=== PATIENT | female | born 1945 | race Caucasian/White ===

== ENCOUNTER 2022-03-07 09:43 | Outpatient (CLI) | payer MEDICARE, BC, SELFPAY ==
[2022-03-07 14:42] LABS: Chloride* 100 mmol/L (96-114); Potassium* 4.9 mmol/L (3.6-5.1); Sodium* 136 mmol/L (135-149)
[2022-03-07 14:45] LABS: Blood Urea Nitrogen* 15 mg/dL (7-30); Carbon Dioxide* 26 mmol/L (20-32); Cholesterol* 249 mg/dL (90-199); Creatinine* 0.8 mg/dL (0.5-1.5); Estimated Glomerular Filt Rate 77 ml/min; Glucose* 96 mg/dL (60-115); Triglycerides* 158 mg/dL (40-149)
[2022-03-07 14:46] LABS: Calcium* 9.7 mg/dL (8.4-10.6); HDL Cholesterol* 49 mg/dL (>=50); LDL Cholesterol Calculated 168 mg/dL (<100)
== END 2022-03-07 09:44 | disposition home or self-care (01) ==
PROVIDERS: PCP Family Medicine; Visit Provider Family Medicine
DX: I10 Essential (primary) hypertension (principal); E78.5 Hyperlipidemia, unspecified
CPT/HCPCS: 80048; 80061

== ENCOUNTER 2022-09-12 08:53 | Outpatient (CLI) | payer MEDICARE, BC, SELFPAY ==
--- NOTE | 2022-09-12 09:15 | CRLHL7_ITS ---
For Patients: As a result of the Century Cures Act, medical imaging exams and procedure reports are released immediately into your electronic medical record. You may view this report before your referring provider. If you have questions, please contact your health care provider. BILATERAL SCREENING MAMMOGRAM WITH COMPUTER-AIDED DETECTION AND TOMOSYNTHESIS TECHNIQUE: CC and MLO views were obtained. These mammographic images have been obtained using full-field digital technique. These mammographic images were interpreted with the benefit of computer-aided detection. Breast Tomosynthesis was used in this interpretation. COMPARISON FILM: 03/10/21, 04/02/19. FINDINGS: There are scattered areas of fibroglandular density IMPRESSION: There is no radiographic evidence for malignancy. ASSESSMENT: BI-RADS Category 1: Negative RECOMMENDATION: Routine screening mammogram in 1 year. A lay language report of this examination will be provided to the patient. Akash Chaves M.D. Diagnostic Radiologist [email or web address] TIAN/rufina / be/Dictated by: Akash Chaves MD @ 09/12/2022 12:03:00 PM (Electronically Signed)
== END 2022-09-12 08:54 | disposition home or self-care (01) ==
LOC: MAMMO 08:54
PROVIDERS: PCP Family Medicine; Visit Provider Family Medicine
DX: Z12.31 Encounter for screening mammogram for malignant neoplasm of breast (principal)
CPT/HCPCS: 77063; 77067

== ENCOUNTER 2023-04-17 10:04 | Outpatient (CLI) | payer MEDICARE, BC, SELFPAY | END 2023-04-17 10:05 | disposition home or self-care (01) | PROVIDERS: PCP Family Medicine; Visit Provider Family Medicine | DX: I10 Essential (primary) hypertension (principal); E78.5 Hyperlipidemia, unspecified | CPT/HCPCS: 80048; 80061 ==

== ENCOUNTER 2023-08-23 09:25 | Outpatient (CLI) | payer MEDICARE, BC, SELFPAY ==
--- NOTE | 2023-08-23 10:00 | CT_ITS ---
Patient: JESÚS OSEI STONE Facility:?[facility] RIS Patient ID:?[id number] Site Patient ID:?[id number]. Site :?1945 Study:?CT-Abdomen/Pelvis W/O-08/23/2023 11:22:35 AM Ordering Physician:SHIREEN JARQUIN Final Report: Indication: CONSTIPATION, GAIN WEIGHT 10 LBS , ABDOMEN DISCOMFORT BLOATING Technique: Noncontrast CT abdomen and pelvis Please note that all CT scans at this facility use dose modulation, iterative reconstruction, and/or weight-based dosing when appropriate to reduce radiation dose to as low as reasonably achievable. Comparison: None Findings: Minimal atelectasis is present within both lung bases. No pleural effusion. Atherosclerotic changes noted. Visualized breast parenchyma appears normal. Intra-abdominal and intrapelvic ascites noted. Noncontrast enhanced liver and spleen appear normal. Adrenal glands and kidneys are within normal limits. Normal pancreas. Mild layering debris in the gallbladder may be present. Ill- defined curvilinear densities are present throughout the greater omental fat within the upper abdomen with slightly more masslike areas in the right mid abdomen. Numerous mildly prominent mesenteric lymph nodes are present centrally. There is a heterogeneous mass within the right side of the pelvis measuring 4.7 x 5.0 cm. No bowel obstruction is present. There is sigmoid diverticulosis. No fracture. Impression: Large volume intra-abdominal and intrapelvic ascites. There is a 4.7 x 5.0 cm heterogeneous right adnexal mass, likely ovarian in origin. Omental caking noted particularly in the right side of the abdomen along with innumerable mildly prominent mesenteric lymph nodes. Overall, findings are most suggestive of ovarian carcinoma. Pelvic ultrasound or pelvic MRI recommended for further evaluation. Ultrasound-guided paracentesis also suggested. Please note that all CT scans at this facility use dose modulation, iterative reconstruction, and/or weight-based dosing when appropriate to reduce radiation dose to as low as reasonably achievable. Dictated by Akash Chaves MD @ 08/23/2023 11:51:00 AM Signed by:?Akash Chaves MD @08/23/2023 11:51:00 AM (Electronic Signature)
[2023-08-23 10:05] LABS: Estimated Glomerular Filt Rate 26 ml/min
== END 2023-08-23 09:26 | disposition home or self-care (01) ==
PROVIDERS: PCP Family Medicine
DX: K59.00 Constipation, unspecified (principal); R63.5 Abnormal weight gain; R14.0 Abdominal distension (gaseous); R18.8 Other ascites
CPT/HCPCS: 36415; 74176; 82565

== ENCOUNTER 2023-08-26 08:19 | Outpatient (CLI) | payer MEDICARE, BC, SELFPAY | END 2023-08-26 08:20 | disposition home or self-care (01) | LOC: NFLDREF 09-05 09:39 | PROVIDERS: PCP Family Medicine; Referring Provider Family Medicine; Visit Provider Family Medicine | DX: N83.8 Other noninflammatory disorders of ovary, fallopian tube and broad ligament (principal); R18.8 Other ascites | CPT/HCPCS: 80053 ==

== ENCOUNTER 2023-08-29 14:36 | Outpatient (CLI) | payer MEDICARE, BC, SELFPAY ==
[2023-08-29 14:42] VITALS: BP 148/69; PULSE 104; RESP 16; TEMP 37.1; O2SAT 98
[2023-08-29 15:22] VITALS: BP 129/57; PULSE 91; RESP 18
[2023-08-29 15:30] VITALS: BP 129/62; PULSE 95; RESP 16; O2SAT 97
--- NOTE | 2023-08-29 15:33 | W.PM.PARA ---
Paracentesis Date Date: 08/29/23 Procedure Note Procedure: Paracentesis with Ultrasound Guidance Type of paracentesis: Diagnostic Initial or Repeat?: Initial Surgeon: Onesimo Hammonds Indications: 77-year-old female presents with ascites of unknown etiology. Patient was recently found to have an ovarian mass on a CT scan after workup for abdominal pain. She was referred to our procedure Center for diagnostic and therapeutic paracentesis. Patient has never had this procedure before. Patient has been having abdominal distension for some time now and is having difficulty taking a deep breath and having early satiety. The procedure was discussed in detail. The risks associated procedure including infection, bleeding, and injury to intra-abdominal organs, as well as recurrence of ascites were all discussed with the patient, and she agreed to proceed. Labs and Cytology Sent:: Yes Albumin infused: No Procedure Note:: Prior to the procedure, the risks and benefits of the procedure were discussed and an informed consent was obtained. Patient identification was confirmed and TIME OUT was performed. An ultrasound was brought onto the field and an easily accessible pocket of ascites was identified that was away from intraabdominal organs. The patient's abdomen in the left lower quadrant was prepped and draped in the usual sterile fashion. 1% Lidocaine was used to anesthetize the skin, soft tissues and peritoneum over the proposed needle insertion site. A skin incision was made with a scalpel just large enough to fit the needle. The needle with the paracentesis catheter was advanced into the abdomen and a clear yellow fluid was aspirated into the syringe. The needle was then withdrawn and the catheter was left in place. 200 mL of clear yellow fluid was aspirated and sent to pathology for evaluation and cytology. The catheter was then connected to the drainage tubing. A total of 4400 ml of straw colored fluid was drained. Post procedure ultrasound revealed moderate amount of residual ascitic fluid. The catheter was then removed and the skin was closed with Dermabond. Patient tolerated procedure well and there were no immediate complications. Patient's vital signs were stable throughout the procedure and no albumin was infused. Recomendation: Discharge to home (ambulatory) and return to normal activities tomorrow. Follow up with Dr. Leigh who is managing the workup of this pelvic/ovarian mass.
[2023-08-29 15:48] LABS: Lactate Dehydrogenase* 300 U/L (120-246); Total Protein* 6.7 g/dL (6.0-8.3)
[2023-08-29 16:38] LABS: Mononuclear WBC Body Fluid* 96 %; Polynuclear WBC Body Fluid* 4 %; RBC, Body Fluid* 2000 Cells/uL; WBC, Body Fluid* 699 Cells/uL
[2023-08-29 16:53] LABS: BF Clarity* Slightly Cloudy
[2023-08-29 16:54] LABS: BF Color Xanthochromic
[2023-08-29 16:59] LABS: Albumin Body Fluid* 2.3 gm/dL; Amylase Body Fluid* < 30 U/L; Body Fluid Total Protein* 4.5 gm/dL; Glucose Body Fluid* 76 mg/dL; LDH Body Fluid* 597 U/L
[2023-08-29 17:01] LABS: BF Total Volume* 200
== END 2023-08-29 15:49 | disposition home or self-care (01) ==
PROVIDERS: PCP Family Medicine; Visit Provider Surgery
DX: R18.8 Other ascites (principal); N83.8 Other noninflammatory disorders of ovary, fallopian tube and broad ligament
CPT/HCPCS: 36415; 49083; 82042; 82150; 82945; 83615; 84155; 84157; 87070; 87205; 88112; 88305; 88341; 88342; 89051

== ENCOUNTER 2023-09-06 09:57 | Outpatient (CLI) | payer MEDICARE, BC, SELFPAY | END 2023-09-06 09:58 | disposition home or self-care (01) | LOC: NFLDREF 09-20 09:10 | PROVIDERS: PCP Family Medicine; Referring Provider Family Medicine; Visit Provider Family Medicine | DX: C56.9 Malignant neoplasm of unspecified ovary (principal); N83.8 Other noninflammatory disorders of ovary, fallopian tube and broad ligament; R60.9 Edema, unspecified | CPT/HCPCS: 80048; 86304 ==

== ENCOUNTER 2023-09-10 09:47 | Outpatient (CLI) | payer MEDICARE, BC, SELFPAY ==
--- NOTE | 2023-09-10 10:15 | MR_ITS ---
Patient: JESÚS OSEI STONE Facility:?[facility] R[facility] Patient ID:?[id number] Site Patient ID:?[id number]. Site :?1945 Study:?MRI-Pelvis W/ and W/O Cont 20 CC DOATERM-09/10/2023 11:29:19 AM Ordering Physician:?CHETAN SUE Final Report: INDICATION: Right adnexal mass. COMPARISON: CT abdomen and pelvis 08/23/2023. Technique: MR of the pelvis without and with intravenous contrast; precontrast T1 and T2 weighted imaging; T2 haste imaging; diffusion-weighted imaging; in and out of phase imaging; postcontrast imaging in axial, coronal and sagittal projections; 20 cc Dotarem contrast was injected. FINDINGS: A 7 x 5.4 cm complex mass identified involving the right adnexa. The solid component measures 4.8 x 2.7 cm and the cystic component measures 2.1 x 3.3 cm. Thickening of the peritoneal lining with nodularity indicating peritoneal carcinomatosis. Large volume abdominal and pelvic ascites. Left adnexa is unremarkable. No uterine pathology. Right external iliac lymphadenopathy. Anasarca. IMPRESSION: A 7 x 5.4 cm complex enhancing mass right adnexa; highly concerning for a primary ovarian malignancy with peritoneal carcinomatosis and large volume abdominopelvic ascites. Suggest diagnostic and therapeutic paracentesis Dictated by Robinson Brock MD @ 09/12/2023 1:22:45 PM Signed by:?Robinson Brock MD @09/12/2023 1:22:45 PM (Electronic Signature)
== END 2023-09-10 09:48 | disposition home or self-care (01) ==
LOC: MRI 09:50
PROVIDERS: PCP Family Medicine; Visit Provider Family Medicine
DX: N83.8 Other noninflammatory disorders of ovary, fallopian tube and broad ligament (principal)
CPT/HCPCS: 72197; A9575

== ENCOUNTER 2023-09-26 07:48 | Outpatient (CLI) | payer MEDICARE, BC, SELFPAY ==
--- NOTE | 2023-09-26 08:30 | CT_ITS ---
Patient: JESÚS OSEI STONE Facility:?[facility] R[facility] Patient ID:?[id number] Site Patient ID:?[id number]. Site :?1945 Study:?CT-Chest/Abd/Pelvis W/79CC [id number]/28/2024 8:54:59 AM Ordering Physician:MICHAEL Final Report: INDICATION: Ovarian cancer; staging. COMPARISON: MRI of the pelvis September 10, 2023; CT abdomen and pelvis without intravenous contrast 08/23/2023. TECHNIQUE: CT chest, abdomen and pelvis with intravenous contrast; coronal and sagittal reformats. FINDINGS: No abnormal mediastinal or hilar lymphadenopathy. Coronary artery calcifications. Normal size cardiac silhouette without any evidence of pericardial effusion. No abnormal intra pulmonary nodular densities. No evidence of pleural effusion. No focal hepatic or splenic pathology. No pancreatic pathology. Gallbladder is unremarkable. Right adrenal pathology. Kidneys are normal in structure and function with no obstructive uropathy or perinephric pathology. No retroperitoneal lymphadenopathy. Large volume abdominal and pelvic ascites. A 7 x 5.6 cm complex mass involving the right adnexa presumed right ovarian carcinoma. Extensive nodularity involving the peritoneal lining in the abdomen as well as pelvis indicating peritoneal carcinomatosis. No abnormal pelvic lymphadenopathy. IMPRESSION: 1. Abdominal and pelvic ascites with the primary mass in the right adnexa and evidence of peritoneal carcinomatosis. 2. Negative CT chest, abdomen pelvis with intravenous contrast otherwise. Please note that all CT scans at this facility use dose modulation, iterative reconstruction, and/or weight-based dosing when appropriate to reduce radiation dose to as low as reasonably achievable. Dictated by Robinson Brock MD @ 09/26/2023 2:50:01 PM Signed by:?Robinson Brock MD @09/26/2023 2:50:01 PM (Electronic Signature)
--- NOTE | 2023-09-26 09:15 | MM_ITS ---
Patient: JESÚS BORJA Facility:?[facility] R[facility] Patient ID:?[id number] :?1945 Study:?XRay-Breast Bilateral 3D W/CAD-09/26/2023 12:09:09 PM Ordering Physician:RAMIN RODRIGUEZ Final Report: BILATERAL SCREENING MAMMOGRAM WITH COMPUTER-AIDED DETECTION AND TOMOSYNTHESIS TECHNIQUE: CC and MLO views were obtained. These mammographic images have been obtained using full-field digital technique. These mammographic images were interpreted with the benefit of computer-aided detection. Breast Tomosynthesis was used in this interpretation. COMPARISON FILM: 09/12/22, 03/10/21. FINDINGS: There are scattered areas of fibroglandular density IMPRESSION: There is no radiographic evidence for malignancy. ASSESSMENT: BI-RADS Category 1: Negative RECOMMENDATION: Routine screening mammogram in 1 year. A lay language report of this examination will be provided to the patient. Akash Chaves M.D. Diagnostic Radiologist [email or web address] TIAN/don Transcribed: 2:24 p.mCheyenne ochoa/Dictated by: Akash Chaves MD @ 10/02/2023 12:30:00 PM Signed by:?Akash Chaves MD @10/02/2023 3:06:13 PM (Electronic Signature)
== END 2023-09-26 07:49 | disposition home or self-care (01) ==
PROVIDERS: PCP Family Medicine; Visit Provider Obstetrics & Gynecology Gynecologic Oncology
DX: C56.9 Malignant neoplasm of unspecified ovary (principal); R18.8 Other ascites; Z12.31 Encounter for screening mammogram for malignant neoplasm of breast
CPT/HCPCS: 71260; 74177; 77063; 77067; Q9967

== ENCOUNTER 2023-09-30 07:34 | Day surgery (SDC) | payer MEDICARE, BC, SELFPAY ==
[2023-09-30 07:58] VITALS: BMI 27.1
[2023-09-30 08:15] VITALS: BP 137/70; PULSE 87; RESP 16; TEMP 36.8; O2SAT 98
--- NOTE | 2023-09-30 08:27 | XR_ITS ---
Patient: JESÚS OSEI STONE Facility:?[facility] R[facility] Patient ID:?[id number] Site Patient ID:?[id number]. Site :?1945 Study:?XRay-Chest 1V-09/30/2023 9:31:31 AM Ordering Physician:?DR. BRAVO Final Report: INDICATION: Port-A-Cath placement. TECHNIQUE: Fluoroscopic spot film of the chest. FINDINGS: Port-A-Cath with the tip in the superior vena cava. No pneumothorax evident. Dictated by Robinson Brock MD @ 09/30/2023 12:43:53 PM Signed by:?Robinson Brock MD @09/30/2023 12:43:53 PM (Electronic Signature)
--- NOTE | 2023-09-30 08:44 | W.PM.H&PU ---
History & Physical Update History & Physical Update H&P Reviewed and patient assessed: No changes noted H&P Updates: Patient is here today for port placement for chemotherapy for recent diagnosis of ovarian cancer. History reviewed with patient. Chest imaging reviewed. Patient not on blood thinners. risks/benefits discussed and patient agreees to proceed.
[2023-09-30] MEDS: LACTATED RINGERS 1000 ML 1,000 ML 100 ML IV (08:45)
[2023-09-30] MEDS: CEFAZOLIN 1 GM inj IVP (08:46)
[2023-09-30] MEDS: SODIUM CHLORIDE 0.9 % (FLUSH) 10 ML SYRINGE IVF (08:46)
--- NOTE | 2023-09-30 08:50 | PM.GSPRC ---
Operative Note Date of procedure: 09/30/23 Pre-op diagnosis: Ovarian cancer Post-op diagnosis: Same Type of Procedure: Right IJ power port placement with ultrasound and fluoroscopic guidance Indications: The patient is a 77-year-old female with ovarian cancer who is in need of port placement for chemotherapy. Procedure Description: After discussing the risks and benefits of the procedure, the patient signed informed consent.? The operative site was marked and the patient was brought to the operating room and placed on the operating table in supine position.? Care was taken to pad the patient's pressure points.?? The patient was then given sedation by anesthesia.?? The operative site was then prepped and draped in the usual sterile fashion.? A time-out was then performed. The patient's right internal jugular vein was visualized using ultrasound. Local anesthetic was injected into the skin overlying the vein. This was accessed percutaneously using ultrasound guidance. Using Seldinger technique, a guidewire was threaded through the needle. A skin beto was made around the wire. Next, local anesthetic was injected into the skin below the clavicle and along the proposed tract to the neck incision. A skin incision was then made with a 15 blade and a pocket created in the subcutaneous tissue with cautery. A tunneler was then used to thread the catheter from the chest wall pocket to the neck incision. Once this was done fluoroscopy was brought into the field. Over the wire the tract was dilated using fluoroscopy. The wire and the dilator were then removed leaving the sheath in the vein. Through this, the catheter was threaded. Using fluoroscopy, the catheter was positioned into the distal SVC. The catheter was noted to flush and aspirate easily. The catheter was then connected to the port. The port was placed in the pocket and secured in place with 2 0 Prolene sutures. It was noted to flush and aspirate easily. This was then locked with heparinized saline. The skin was closed with absorbable suture. Sterile dressings were applied. Instrument sponge and needle counts were correct at the end of the case. The patient was woken and taken to the PACU in stable condition. ? The patient tolerated the procedure well. Findings: Right IJ power port placed in the low SVC Anesthesia: MAC Surgeon: Jaylyn Foley MD Estimated blood loss (mL): 5 Condition: stable Disposition: same day
[2023-09-30] MEDS: LIDOCAINE 1% MDV 20 ML INJECTION (09:13)
[2023-09-30] MEDS: BUPIVACAINE 0.5% 30 ML INJECTION (09:13)
[2023-09-30] MEDS: 0.9% SODIUM CHL 50 ML VIAL INJECTION (09:27)
[2023-09-30] MEDS: HEPARIN 500 UNIT/5 ML SYRINGE IVF (09:27)
--- NOTE | 2023-09-30 09:42 | XR_ITS ---
Patient: JESÚS OSEI STONE Facility:?[facility] R[facility] Patient ID:?[id number] Site Patient ID:?[id number]. Site :?1945 Study:?XRay-Chest 1V-09/30/2023 9:59:04 AM Ordering Physician:?DR. BRAVO Final Report: INDICATION: Postop port placement. TECHNIQUE: Portable AP chest. FINDINGS: Port-A-Cath with the tip in the superior vena cava. No pneumothorax or pleural effusion. IMPRESSION: Port-A-Cath in the superior vena cava. Dictated by Robinson Brock MD @ 09/30/2023 2:45:23 PM Signed by:?Robinson Brock MD @09/30/2023 2:45:23 PM (Electronic Signature)
[2023-09-30 09:43] VITALS: BP 117/67; PULSE 81; RESP 16; TEMP 36.2; O2SAT 95
--- NOTE | 2023-09-30 09:50 | P.ANES_ITS ---
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
[2023-09-30 10:00] VITALS: BP 125/62; PULSE 77; RESP 16; O2SAT 94
[2023-09-30 10:15] VITALS: BP 131/77; PULSE 80; RESP 16; O2SAT 98
[2023-09-30 10:30] VITALS: BP 135/74; PULSE 78; RESP 16; O2SAT 98
== END 2023-09-30 10:40 | disposition home or self-care (01) ==
PROVIDERS: PCP Family Medicine; Visit Provider Surgery
PROC: (CPT 36561; principal; 2023-09-30 09:00)
DX: Z45.2 Encounter for adjustment and management of vascular access device (principal); C56.1 Malignant neoplasm of right ovary
CPT/HCPCS: 36561; 00532; 71045; 76000; 76998; 99100; C1788; J0665; J0690; J1100; J1642; J2250; J2405; J2704; J3490; J7120

== ENCOUNTER 2023-12-02 08:16 | Outpatient (CLI) | payer MEDICARE, BC, SELFPAY ==
--- NOTE | 2023-12-02 09:00 | CRLHL7_ITS ---
For Patients: As a result of the Century Cures Act, medical imaging exams and procedure reports are released immediately into your electronic medical record. You may view this report before your referring provider. If you have questions, please contact your health care provider. INDICATION: Ovarian cancer. TECHNIQUE: Intravenous contrast enhanced CT chest, pelvis. 79 mL Isovue 370 intravenous contrast was administered. COMPARISON: CT of the chest, abdomen and pelvis from 09/26/2023. CT of the abdomen and pelvis from 08/23/2023. FINDINGS: Chest: Atherosclerotic change thoracic aorta without aneurysm. Coronary artery calcifications. No significant pericardial. No incidental acute pulmonary embolism. No enlarged mediastinal or hilar lymph nodes. No enlarged axillary lymph nodes. No new or enlarged pulmonary nodules. No lung consolidation. No pleural effusion or pneumothorax. Degenerative changes of the spine. No acute fractures. Abdomen and pelvis: Interval decrease in volume of abdominal and pelvic ascites. There remains a small amount of predominantly pelvic ascites. Right adnexal mass has decreased in size measuring 4 x 3.4 cm on image number 109 of series 7 compared to 7 x 5.6 centimeters previously when measured in a comparable manner. Peritoneal carcinomatosis and omental tumor implants are improved though there does remain residual peritoneal disease. No new or enlarged liver lesion. No biliary ductal dilatation. Gallbladder does not appear excessively distended. Spleen and adrenal glands are normal. No focal pancreatic abnormality. Symmetric nephrograms. No change in probable small cyst at the medial superior aspect of the right kidney. No hydronephrosis. Urinary bladder nondistended. No small bowel or colonic obstruction. Colonic diverticulosis without acute diverticulitis. Atherosclerotic change of the abdominal aorta without aneurysm. Degenerative changes of the hips. Degenerative changes of the pubic symphysis and sacroiliac joints. Degenerative changes within the lumbar spine. IMPRESSION: 1. Improvement in but not resolution of ascites, predominantly present within the pelvis. 2. Interval decrease in size of right adnexal mass. 3. Improvement in peritoneal carcinomatosis and omental tumor implants. 4. No metastatic disease seen within the chest. Please note that all CT scans at this facility use dose modulation, iterative reconstruction, and/or weight-based dosing when appropriate to reduce radiation dose to as low as reasonably achievable. Dictated by Maximo Patel MD @ 12/03/2023 6:39:17 AM (Electronically Signed)
== END 2023-12-02 08:17 | disposition home or self-care (01) ==
LOC: CT 08:18
PROVIDERS: PCP Family Medicine; Visit Provider Nurse Practitioner Adult Health
DX: C56.1 Malignant neoplasm of right ovary (principal)
CPT/HCPCS: 71260; 74177; Q9967

== ENCOUNTER 2024-04-22 09:28 | Outpatient (CLI) | payer MEDICARE, BC, SELFPAY ==
--- NOTE | 2024-04-22 10:00 | CRLHL7_ITS ---
For Patients: As a result of the Century Cures Act, medical imaging exams and procedure reports are released immediately into your electronic medical record. You may view this report before your referring provider. If you have questions, please contact your health care provider. INDICATION: Ovarian carcinoma; restaging. COMPARISON: CT abdomen and pelvis 08/23/2023 ; CT chest, abdomen and pelvis with intravenous contrast 09/26/2023 and December 02, 2023; MRI of the pelvis 09/10/2023. TECHNIQUE: CT chest, abdomen and pelvis with and without contrast; coronal and sagittal reformats. FINDINGS: Port-A-Cath in place. No abnormal mediastinal or hilar lymphadenopathy. No pulmonary nodules. No evidence of pleural effusion or chest wall pathology. No focal hepatic or splenic pathology. No pancreatic pathology. The gallbladder is unremarkable. No adrenal pathology. No kidney stones or obstructive uropathy. No evidence of abdominal or pelvic ascites. Status post hysterectomy and bilateral salpingo-oophorectomy. Questionable thickening of the peritoneal lining with almost complete resolution than compared to the previous study. No evidence of residual peritoneal carcinomatosis. IMPRESSION: 1. No evidence of metastatic disease within the chest, abdomen or pelvis. 2. Status post hysterectomy and bilateral salpingo-oophorectomy. 3. Port-A-Cath in place. Please note that all CT scans at this facility use dose modulation, iterative reconstruction, and/or weight-based dosing when appropriate to reduce radiation dose to as low as reasonably achievable. Dictated by Robinson Brock MD @ 04/24/2024 2:47:12 PM (Electronically Signed)
== END 2024-04-22 09:29 | disposition home or self-care (01) ==
LOC: CT 09:30
PROVIDERS: PCP Family Medicine; Visit Provider Internal Medicine Hematology & Oncology
DX: C56.9 Malignant neoplasm of unspecified ovary (principal)
CPT/HCPCS: 71260; 74177; Q9967

== ENCOUNTER 2024-06-15 11:21 | Outpatient (CLI) | payer MEDICARE, BC, SELFPAY | END 2024-06-15 11:22 | disposition home or self-care (01) | PROVIDERS: PCP Family Medicine; Visit Provider Obstetrics & Gynecology | DX: C56.3 Malignant neoplasm of bilateral ovaries (principal) | CPT/HCPCS: 86304 ==

== ENCOUNTER 2024-08-17 08:18 | Outpatient (CLI) | payer MEDICARE, BC, SELFPAY ==
--- NOTE | 2024-08-17 09:00 | CRLHL7_ITS ---
For Patients: As a result of the Century Cures Act, medical imaging exams and procedure reports are released immediately into your electronic medical record. You may view this report before your referring provider. If you have questions, please contact your health care provider. Indication: Ovarian cancer Technique: CT chest, abdomen and pelvis after the intravenous administration of 74 cc of Omnipaque 370. Comparison: CT chest, abdomen and pelvis 04/22/2024 Findings: Chest: Right chest wall Port-A-Cath distal tip is again identified within the right innominate. Heart is normal in size without pericardial effusion. Great vessels are normal in caliber. There is no mediastinal mass or lymphadenopathy. Lungs are clear. Abdomen and pelvis: The liver, gallbladder, pancreas, spleen, adrenal glands and kidneys are normal. Urinary bladder is grossly unremarkable. Uterus is surgically absent and there are no pelvic cysts or masses. The hollow viscera without obstruction, focal bowel wall thickening or adjacent inflammatory stranding. There is no free air, ascites or lymphadenopathy. The abdominal aorta and its major branches are patent and normal in caliber. Soft tissues and bones: Soft tissues are unremarkable. Bones are stable without new suspicious bony lesion. Impression: No CT evidence of metastatic disease. If there is continued concern, recommend FDG PET-CT which has a higher sensitivity and is most accurate for staging. Please note that all CT scans at this facility use dose modulation, iterative reconstruction, and/or weight-based dosing when appropriate to reduce radiation dose to as low as reasonably achievable. Dictated by Narayan Esquivel MD @ 08/17/2024 11:49:23 AM (Electronically Signed)
== END 2024-08-17 08:19 | disposition home or self-care (01) ==
LOC: CT 08:19
PROVIDERS: PCP Family Medicine; Visit Provider Internal Medicine Hematology & Oncology
DX: C56.9 Malignant neoplasm of unspecified ovary (principal)
CPT/HCPCS: 71260; 74177; Q9967

== ENCOUNTER 2024-09-28 12:45 | Outpatient (RCR) | payer MEDICARE, BC, SELFPAY ==
[2024-04-08 11:57] LABS: Basophils Absolute Auto 0.04 K/uL (0.00-0.30); Basophils Percent Auto 0.8 % (0.0-3.0); Eosinophils Percent Auto 3.8 % (0.0-7.0); Hematocrit 28.3 % (33.0-51.0); Hemoglobin* 9.8 gm/dL (12.0-16.0); Immature Granulocytes Abs Auto 0.01 K/uL (0.00-0.30); Immature Granulocytes Pct Auto 0.2 %; Lymphocytes Percent Auto 18.6 % (20-44); Mean Corpuscular HGB Conc 35 gm/dL (32-36); Mean Corpuscular Hemoglobin 34 pg (26-34); Mean Corpuscular Volume 97 fL (80-100); Monocytes Percent Auto 11.9 % (0.0-11.0); Neutrophils Absolute Auto 3.44 K/uL (1.7-7.0); Neutrophils Percent Auto 64.7 % (42.0-72.0); Platelet Count* 239 K/uL (140-440); RDW Coefficient of Variation % 13.7 % (11.5-15.5); Red Blood Count 2.92 m/uL (4.00-5.20); White Blood Count* 5.31 K/uL (4.50-11.00)
[2024-04-08 11:58] LABS: Slide Review Reflex No
[2024-04-08 12:14] LABS: Chloride* 96 mmol/L (96-114); Potassium* 4.5 mmol/L (3.6-5.1); Sodium* 131 mmol/L (135-149)
[2024-04-08 12:16] LABS: Creatinine* 0.7 mg/dL (0.5-1.5); Est. Creatinine Clearance* 39.59; Estimated Glomerular Filt Rate 90 ml/min
[2024-04-08 12:17] LABS: Alanine Aminotransferase* 12 U/L (4-35); Alkaline Phosphatase* 58 U/L (40-150); Anion Gap 11 mEq/L (7-15); Aspartate Amino Transferase* 26 U/L (12-35); Bilirubin Total* 0.5 mg/dL (0.1-1.5); Blood Urea Nitrogen* 14 mg/dL (7-30); Calcium* 9.9 mg/dL (8.4-10.6); Carbon Dioxide* 24 mmol/L (20-32); Glucose* 95 mg/dL (60-115); Total Protein* 8.2 g/dL (6.0-8.3)
--- NOTE | 2024-04-08 14:28 | URNOTE ---
Request received for authorization for Mario ([id number]). Prior authorization is not required as services are based on medical necessity and follow Medicare guidelines.
[2024-04-10 04:09] LABS: Cancer Antigen 125 17 U/mL (<=38)
[2024-04-28 15:31] LABS: Basophils Absolute Auto 0.03 K/uL (0.00-0.30); Basophils Percent Auto 0.5 % (0.0-3.0); Eosinophils Absolute Auto 0.23 K/uL (0.00-0.50); Hematocrit 28.3 % (33.0-51.0); Hemoglobin* 9.3 gm/dL (12.0-16.0); Immature Granulocytes Abs Auto 0.06 K/uL (0.00-0.30); Lymphocytes Absolute Auto 1.23 K/uL (0.90-2.90); Lymphocytes Percent Auto 21.3 % (20-44); Mean Corpuscular HGB Conc 33 gm/dL (32-36); Mean Corpuscular Hemoglobin 32 pg (26-34); Mean Corpuscular Volume 98 fL (80-100); Monocytes Percent Auto 7.8 % (0.0-11.0); Neutrophils Absolute Auto 3.78 K/uL (1.7-7.0); Neutrophils Percent Auto 65.4 % (42.0-72.0); Platelet Count* 366 K/uL (140-440); RDW Coefficient of Variation % 13.2 % (11.5-15.5); Red Blood Count 2.89 m/uL (4.00-5.20); White Blood Count* 5.78 K/uL (4.50-11.00)
[2024-04-28 15:35] LABS: Slide Review Reflex No
[2024-04-28 15:36] LABS: Albumin* 4.6 g/dL (3.3-5.0); Chloride* 96 mmol/L (96-114)
[2024-04-28 15:37] LABS: Potassium* 4.2 mmol/L (3.6-5.1); Sodium* 130 mmol/L (135-149)
[2024-04-28 15:38] LABS: Total Protein Urine 17 mg/dL
[2024-04-28 15:39] LABS: Anion Gap 11 mEq/L (7-15); Aspartate Amino Transferase* 25 U/L (12-35); Bilirubin Total* 0.2 mg/dL (0.1-1.5); Carbon Dioxide* 23 mmol/L (20-32); Creatinine* 0.7 mg/dL (0.5-1.5); Est. Creatinine Clearance* 39.59; Estimated Glomerular Filt Rate 90 ml/min; Total Protein* 8.1 g/dL (6.0-8.3)
[2024-04-28 15:40] LABS: Alanine Aminotransferase* 10 U/L (4-35); Alkaline Phosphatase* 68 U/L (40-150); Blood Urea Nitrogen* 12 mg/dL (7-30); Calcium* 9.4 mg/dL (8.4-10.6); Creatinine Urine 59.9 mg/dL; Glucose* 111 mg/dL (60-115); Protein Creatinine Ratio Urine 0.28 (0-0.19)
[2024-04-29 09:00] VITALS: BP 182/79; PULSE 88; RESP 14; O2SAT 99
--- NOTE | 2024-04-29 09:44 | ONC.NURNOTE ---
Na 130, discussed with Dr. Mohan. Dr. Mohan sent in script for salt tabs 1 daily PO for 7 days. Will update pt when she is in for treatment today and give her a print out on hyponatremia.
[2024-04-29 10:15] VITALS: BP 196/87
[2024-04-29] MEDS: LORazepam 0.5 MG TABLET PO (11:15)
[2024-04-29] MEDS: HYDRALAZINE 10 MG TABLET PO (11:15)
[2024-04-29 12:18] VITALS: BP 175/71
[2024-04-29] MEDS: BEVACIZUMAB ADCD IVPB (12:28)
[2024-04-29] MEDS: TUBING SECONDARY IVPB (12:28)
[2024-04-29] MEDS: [UNRECOGNIZED DRUG - OTHER] IVPB (12:28)
--- NOTE | 2024-04-29 13:20 | ONC.NURNOTE ---
Bevacizumab treatment today 1st dose given at [facility] earlier in Mar script writer reviewed possible side effects, including bleeding and hypertension patient has received a chemo teaching binder and has information at home regarding the bevacizumab [facility] information provided for self care at home, after hours management, fatigue, eating well and peripheral neuropathy patient declined referral to CRP for management of peripheral neuropathy
[2024-04-29] MEDS: SODIUM CHLORIDE 0.9 % (FLUSH) 10 ML SYRINGE IVF (13:45)
[2024-04-29] MEDS: HEPARIN 500 UNIT/5 ML SYRINGE IVF (13:46)
[2024-05-19 09:12] LABS: Basophils Absolute Auto 0.03 K/uL (0.00-0.30); Basophils Percent Auto 0.5 % (0.0-3.0); Eosinophils Absolute Auto 0.17 K/uL (0.00-0.50); Eosinophils Percent Auto 2.8 % (0.0-7.0); Hematocrit 31.5 % (33.0-51.0); Hemoglobin* 10.8 gm/dL (12.0-16.0); Immature Granulocytes Abs Auto 0.01 K/uL (0.00-0.30); Immature Granulocytes Pct Auto 0.2 %; Lymphocytes Absolute Auto 1.25 K/uL (0.90-2.90); Lymphocytes Percent Auto 20.7 % (20-44); Mean Corpuscular HGB Conc 34 gm/dL (32-36); Mean Corpuscular Hemoglobin 32 pg (26-34); Mean Corpuscular Volume 94 fL (80-100); Monocytes Percent Auto 10.4 % (0.0-11.0); Neutrophils Absolute Auto 3.95 K/uL (1.7-7.0); Neutrophils Percent Auto 65.4 % (42.0-72.0); Platelet Count* 221 K/uL (140-440); RDW Coefficient of Variation % 12.5 % (11.5-15.5); Red Blood Count 3.35 m/uL (4.00-5.20); White Blood Count* 6.04 K/uL (4.50-11.00)
[2024-05-19 09:14] LABS: Slide Review Reflex No
[2024-05-19 09:25] LABS: Chloride* 88 mmol/L (96-114)
[2024-05-19 09:26] LABS: Albumin* 4.9 g/dL (3.3-5.0); Potassium* 4.4 mmol/L (3.6-5.1); Sodium* 125 mmol/L (135-149)
[2024-05-19 09:28] LABS: Bilirubin Total* 0.4 mg/dL (0.1-1.5); Creatinine* 0.7 mg/dL (0.5-1.5); Est. Creatinine Clearance* 39.59; Estimated Glomerular Filt Rate 90 ml/min
[2024-05-19 09:29] LABS: Alanine Aminotransferase* 12 U/L (4-35); Alkaline Phosphatase* 76 U/L (40-150); Anion Gap 12 mEq/L (7-15); Aspartate Amino Transferase* 26 U/L (12-35); Blood Urea Nitrogen* 18 mg/dL (7-30); Carbon Dioxide* 25 mmol/L (20-32); Glucose* 99 mg/dL (60-115); Total Protein* 8.2 g/dL (6.0-8.3)
[2024-05-19 09:30] LABS: Calcium* 9.7 mg/dL (8.4-10.6)
[2024-05-26 10:31] LABS: Basophils Absolute Auto 0.04 K/uL (0.00-0.30); Basophils Percent Auto 0.7 % (0.0-3.0); Eosinophils Absolute Auto 0.17 K/uL (0.00-0.50); Eosinophils Percent Auto 2.8 % (0.0-7.0); Hematocrit 30.4 % (33.0-51.0); Hemoglobin* 10.2 gm/dL (12.0-16.0); Lymphocytes Percent Auto 17.6 % (20-44); Mean Corpuscular HGB Conc 34 gm/dL (32-36); Mean Corpuscular Hemoglobin 32 pg (26-34); Mean Corpuscular Volume 96 fL (80-100); Neutrophils Absolute Auto 4.35 K/uL (1.7-7.0); Neutrophils Percent Auto 70.9 % (42.0-72.0); Platelet Count* 209 K/uL (140-440); RDW Coefficient of Variation % 12.2 % (11.5-15.5); Red Blood Count 3.18 m/uL (4.00-5.20); White Blood Count* 6.13 K/uL (4.50-11.00)
[2024-05-26 10:45] LABS: Albumin* 4.6 g/dL (3.3-5.0); Chloride* 99 mmol/L (96-114); Potassium* 4.4 mmol/L (3.6-5.1); Slide Review Reflex No; Sodium* 132 mmol/L (135-149)
[2024-05-26 10:47] LABS: Creatinine* 0.7 mg/dL (0.5-1.5); Est. Creatinine Clearance* 39.59; Estimated Glomerular Filt Rate 90 ml/min
[2024-05-26 10:48] LABS: Alanine Aminotransferase* 11 U/L (4-35); Alkaline Phosphatase* 72 U/L (40-150); Anion Gap 7 mEq/L (7-15); Aspartate Amino Transferase* 26 U/L (12-35); Bilirubin Total* 0.2 mg/dL (0.1-1.5); Blood Urea Nitrogen* 13 mg/dL (7-30); Carbon Dioxide* 26 mmol/L (20-32); Glucose* 95 mg/dL (60-115); Total Protein* 7.7 g/dL (6.0-8.3)
[2024-05-26 10:49] LABS: Calcium* 9.8 mg/dL (8.4-10.6)
[2024-05-26] MEDS: LORazepam 0.5 MG TABLET PO (12:39)
[2024-05-26] MEDS: HYDRALAZINE 10 MG TABLET PO (12:40)
--- NOTE | 2024-05-26 13:20 | ONC.NURNOTE ---
Addendum entered by Lolly Galan RN 05/27/24 09:39: Patient's BP came down to 156/69. Spoke with Dr. Mohan again who gave ok for her Vegzelma today but would like patient to follow up with PCP again regarding Sodium and BP issues. Updated patient to check in with her PCP prior to her next infusion. will have patient come in next week with her home BP cuff to ensure that it is reading the same as the clinics. Patient verbalized understanding and is agreeable to the plan. 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 Patient's treatment was held last week due to a low NA of 125. She was started on salt tabs and stopped her BP med. NA was 132 today but BP is high. Initial reading 187/52, recheck was 180/79 and 171/73. Patient's BP's at home are better, she checks it daily. Reports she has this issue with her BP at any medical appt or dentist appt. She denies any headaches, chest tightness, or vision changes. Spoke with Dr. Mohan who gave ok for patient to take a 1 time dose of Hydralazine 10 mg PO and Ativan 0.5 mg PO to see if that helps bring her BP down.
[2024-05-26] MEDS: [UNRECOGNIZED DRUG - OTHER] IVPB (14:22)
[2024-05-26] MEDS: SODIUM CHLORIDE 0.9 % (FLUSH) 10 ML SYRINGE IVF ×2 (14:22→14:58)
[2024-05-26] MEDS: 0.9 % SODIUM CHLORIDE 250 ml IV (14:22)
[2024-05-26] MEDS: TUBING SECONDARY IVPB (14:22)
[2024-05-26] MEDS: BEVACIZUMAB ADCD IVPB (14:22)
[2024-05-26] MEDS: HEPARIN 500 UNIT/5 ML SYRINGE IVF (14:58)
--- NOTE | 2024-06-04 15:43 | ONC.NURNOTE ---
patient in clinic today for a BP check and comparision with her home BP cuff. On assessment Mehnaz's BP cuff was placed on her L) arm and read 183/88, BP checked with VS machine at the [facility] on the R) arm and reading was 202/86. RN let patient sit for a little while and did a recheck of both machines. Pt's read at 186/83 and [facility] 189/81. Patient seen by Tatianna Brooke APRN, see her note. Plan is for patient to be seen by PCP prior to her next infusion appt to discuss BP concerns.
--- NOTE | 2024-06-05 15:16 | ONC.NURNOTE ---
RN called [facility] and spoke with Dr. Garrison's nurse regarding patient's BP issues. Updated her on high BP's in clinic and BP trending upward at home. Asked for patient to be seen to discuss BP prior to her next infusion appt on 06/17. Dr. Garrison's RN was going to speak with him and reach out to Mehnaz.
[2024-06-17 12:51] LABS: Basophils Absolute Auto 0.05 K/uL (0.00-0.30); Basophils Percent Auto 0.8 % (0.0-3.0); Eosinophils Absolute Auto 0.17 K/uL (0.00-0.50); Eosinophils Percent Auto 2.8 % (0.0-7.0); Hematocrit 32.3 % (33.0-51.0); Hemoglobin* 10.9 gm/dL (12.0-16.0); Immature Granulocytes Abs Auto 0.01 K/uL (0.00-0.30); Immature Granulocytes Pct Auto 0.2 %; Lymphocytes Absolute Auto 1.29 K/uL (0.90-2.90); Mean Corpuscular HGB Conc 34 gm/dL (32-36); Mean Corpuscular Hemoglobin 32 pg (26-34); Mean Corpuscular Volume 96 fL (80-100); Monocytes Percent Auto 9.3 % (0.0-11.0); Neutrophils Absolute Auto 4.05 K/uL (1.7-7.0); Neutrophils Percent Auto 65.9 % (42.0-72.0); Platelet Count* 226 K/uL (140-440); RDW Coefficient of Variation % 11.7 % (11.5-15.5); Red Blood Count 3.36 m/uL (4.00-5.20); White Blood Count* 6.14 K/uL (4.50-11.00)
[2024-06-17 12:53] LABS: Slide Review Reflex No
[2024-06-17 13:06] LABS: Albumin* 4.5 g/dL (3.3-5.0); Chloride* 99 mmol/L (96-114)
[2024-06-17 13:07] LABS: Potassium* 4.7 mmol/L (3.6-5.1); Sodium* 132 mmol/L (135-149)
[2024-06-17 13:09] LABS: Anion Gap 9 mEq/L (7-15); Aspartate Amino Transferase* 25 U/L (12-35); Bilirubin Total* 0.4 mg/dL (0.1-1.5); Carbon Dioxide* 24 mmol/L (20-32); Creatinine* 0.8 mg/dL (0.5-1.5); Est. Creatinine Clearance* 39.59; Estimated Glomerular Filt Rate 76 ml/min
[2024-06-17 13:10] LABS: Alanine Aminotransferase* 13 U/L (4-35); Alkaline Phosphatase* 60 U/L (40-150); Blood Urea Nitrogen* 15 mg/dL (7-30); Calcium* 9.4 mg/dL (8.4-10.6); Glucose* 104 mg/dL (60-115); Total Protein* 7.6 g/dL (6.0-8.3)
[2024-06-17 14:54] LABS: Protein Creatinine Ratio Urine 1.02 (0-0.19); Total Protein Urine 44 mg/dL
--- NOTE | 2024-06-18 10:07 | ONC.NURNOTE ---
Patient called and wanted to cancel her appointment as she does not think her BP will be low enough to be treated tomorrow. She was educated on how this was going to be done tomorrow, and explained that she has received both medications that she is receiving and this has worked over time. She was also concerned about driving home. 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 After 15 minutes of continued conversation about treatment, timing, and medications patient has decided to keep her appointment tomorrow at 0845.
[2024-06-19 09:09] VITALS: BP 157/69; PULSE 84; RESP 19; TEMP 36.7; O2SAT 99
[2024-06-19] MEDS: TUBING SECONDARY IVPB (10:18)
[2024-06-19] MEDS: [UNRECOGNIZED DRUG - OTHER] IVPB (10:18)
[2024-06-19] MEDS: BEVACIZUMAB ADCD IVPB (10:18)
[2024-06-19] MEDS: SODIUM CHLORIDE 0.9 % (FLUSH) 10 ML SYRINGE IVF ×2 (10:18→11:17)
[2024-06-19] MEDS: 0.9 % SODIUM CHLORIDE 250 ml IV (10:18)
[2024-06-19 11:15] VITALS: BP 154/71
[2024-06-19] MEDS: HEPARIN 500 UNIT/5 ML SYRINGE IVF (11:17)
--- NOTE | 2024-06-19 12:01 | ONC.NURNOTE ---
Patient in clinic today for Bevacizumab treatment. Delayed 06/17 due to blood pressure. Patient requested BP to be done manually. BP 157/69 on arrival. Per Tatianna Brooke APRN ok to hold Hydralazine and Ativan pre meds as patient's BP under 160. Bevacizumab given. Patient's BP checked 20 min post infusion and was 154/71. Patient DC'd.
--- NOTE | 2024-06-19 13:08 | ONC.NURNOTE ---
Annmarie states is feeling better than she has . recent back surg. and tens unit 06/09. incision wnl. no reddness or drainage. much pain improvement. states eye dryness improved also. finishing preventative antibiotics.
[2024-07-09 09:00] LABS: Basophils Absolute Auto 0.04 K/uL (0.00-0.30); Basophils Percent Auto 0.5 % (0.0-3.0); Eosinophils Absolute Auto 0.27 K/uL (0.00-0.50); Eosinophils Percent Auto 3.7 % (0.0-7.0); Hematocrit 32.3 % (33.0-51.0); Immature Granulocytes Abs Auto 0.01 K/uL (0.00-0.30); Immature Granulocytes Pct Auto 0.1 %; Mean Corpuscular HGB Conc 34 gm/dL (32-36); Mean Corpuscular Hemoglobin 32 pg (26-34); Mean Corpuscular Volume 94 fL (80-100); Monocytes Percent Auto 9.9 % (0.0-11.0); Neutrophils Absolute Auto 5.02 K/uL (1.7-7.0); Neutrophils Percent Auto 68.8 % (42.0-72.0); Platelet Count* 209 K/uL (140-440); RDW Coefficient of Variation % 11.8 % (11.5-15.5); Red Blood Count 3.45 m/uL (4.00-5.20)
[2024-07-09 09:01] VITALS: BP 120/80; PULSE 79; RESP 16; TEMP 36.3; O2SAT 98
[2024-07-09 09:03] LABS: Slide Review Reflex No
[2024-07-09 09:12] LABS: Albumin* 4.6 g/dL (3.3-5.0); Chloride* 98 mmol/L (96-114)
[2024-07-09 09:13] LABS: Potassium* 4.7 mmol/L (3.6-5.1); Sodium* 131 mmol/L (135-149)
[2024-07-09 09:15] LABS: Alanine Aminotransferase* 17 U/L (4-35); Anion Gap 8 mEq/L (7-15); Aspartate Amino Transferase* 33 U/L (12-35); Blood Urea Nitrogen* 13 mg/dL (7-30); Carbon Dioxide* 25 mmol/L (20-32); Creatinine* 0.8 mg/dL (0.5-1.5); Est. Creatinine Clearance* 41.33; Estimated Glomerular Filt Rate 76 ml/min
[2024-07-09 09:16] LABS: Alkaline Phosphatase* 55 U/L (40-150); Bilirubin Total* 0.5 mg/dL (0.1-1.5); Calcium* 9.3 mg/dL (8.4-10.6); Glucose* 92 mg/dL (60-115); Total Protein* 7.8 g/dL (6.0-8.3)
[2024-07-09] MEDS: BEVACIZUMAB ADCD IVPB (10:12)
[2024-07-09] MEDS: TUBING SECONDARY IVPB (10:12)
[2024-07-09] MEDS: [UNRECOGNIZED DRUG - OTHER] IVPB (10:12)
[2024-07-09] MEDS: SODIUM CHLORIDE 0.9 % (FLUSH) 10 ML SYRINGE IVF ×2 (10:13→10:47)
[2024-07-09] MEDS: 0.9 % SODIUM CHLORIDE 500 ML IV (10:14)
[2024-07-09] MEDS: HEPARIN 500 UNIT/5 ML SYRINGE IVF (10:47)
[2024-07-29 09:27] LABS: Basophils Absolute Auto 0.03 K/uL (0.00-0.30); Basophils Percent Auto 0.5 % (0.0-3.0); Eosinophils Percent Auto 4.8 % (0.0-7.0); Hematocrit 32.9 % (33.0-51.0); Hemoglobin* 11.2 gm/dL (12.0-16.0); Lymphocytes Percent Auto 18.8 % (20-44); Mean Corpuscular HGB Conc 34 gm/dL (32-36); Mean Corpuscular Hemoglobin 32 pg (26-34); Mean Corpuscular Volume 94 fL (80-100); Monocytes Percent Auto 11.8 % (0.0-11.0); Neutrophils Absolute Auto 4.04 K/uL (1.7-7.0); Neutrophils Percent Auto 64.1 % (42.0-72.0); Platelet Count* 203 K/uL (140-440); RDW Coefficient of Variation % 12.3 % (11.5-15.5); Red Blood Count 3.52 m/uL (4.00-5.20); White Blood Count* 6.29 K/uL (4.50-11.00)
[2024-07-29 09:30] LABS: Slide Review Reflex No
[2024-07-29 09:42] LABS: Albumin* 4.5 g/dL (3.3-5.0); Chloride* 100 mmol/L (96-114)
[2024-07-29 09:43] LABS: Potassium* 4.6 mmol/L (3.6-5.1); Sodium* 133 mmol/L (135-149)
[2024-07-29 09:45] LABS: Anion Gap 9 mEq/L (7-15); Aspartate Amino Transferase* 26 U/L (12-35); Bilirubin Total* 0.6 mg/dL (0.1-1.5); Carbon Dioxide* 24 mmol/L (20-32); Creatinine* 0.8 mg/dL (0.5-1.5); Est. Creatinine Clearance* 41.33; Estimated Glomerular Filt Rate 76 ml/min
[2024-07-29 09:46] LABS: Alanine Aminotransferase* 16 U/L (4-35); Alkaline Phosphatase* 59 U/L (40-150); Blood Urea Nitrogen* 14 mg/dL (7-30); Calcium* 9.8 mg/dL (8.4-10.6); Glucose* 85 mg/dL (60-115); Total Protein* 7.7 g/dL (6.0-8.3)
[2024-07-29 09:47] LABS: Total Protein Urine 59 mg/dL
[2024-07-29 09:48] LABS: Creatinine Urine 29.3 mg/dL; Protein Creatinine Ratio Urine 2.01 (0-0.19)
[2024-07-29] MEDS: 0.9 % SODIUM CHLORIDE 500 ML IV (11:00)
[2024-07-29] MEDS: TUBING SECONDARY IVPB (11:06)
[2024-07-29] MEDS: [UNRECOGNIZED DRUG - OTHER] IVPB (11:06)
[2024-07-29] MEDS: BEVACIZUMAB ADCD IVPB (11:06)
[2024-07-29] MEDS: HEPARIN 500 UNIT/5 ML SYRINGE IVF (11:44)
[2024-07-29] MEDS: SODIUM CHLORIDE 0.9 % (FLUSH) 10 ML SYRINGE IVF (11:44)
[2024-08-17 08:39] LABS: Basophils Absolute Auto 0.04 K/uL (0.00-0.30); Basophils Percent Auto 0.7 % (0.0-3.0); Eosinophils Absolute Auto 0.29 K/uL (0.00-0.50); Hematocrit 33.6 % (33.0-51.0); Hemoglobin* 11.5 gm/dL (12.0-16.0); Lymphocytes Absolute Auto 1.23 K/uL (0.90-2.90); Lymphocytes Percent Auto 21.4 % (20-44); Mean Corpuscular HGB Conc 34 gm/dL (32-36); Mean Corpuscular Hemoglobin 32 pg (26-34); Mean Corpuscular Volume 93 fL (80-100); Monocytes Percent Auto 11.5 % (0.0-11.0); Neutrophils Absolute Auto 3.54 K/uL (1.7-7.0); Neutrophils Percent Auto 61.4 % (42.0-72.0); Platelet Count* 202 K/uL (140-440); RDW Coefficient of Variation % 12.3 % (11.5-15.5); Red Blood Count 3.62 m/uL (4.00-5.20); White Blood Count* 5.76 K/uL (4.50-11.00)
[2024-08-17 08:41] LABS: Slide Review Reflex No
[2024-08-17 08:52] LABS: Albumin* 4.8 g/dL (3.3-5.0); Chloride* 97 mmol/L (96-114); Sodium* 132 mmol/L (135-149)
[2024-08-17 08:53] LABS: Potassium* 4.4 mmol/L (3.6-5.1)
[2024-08-17 08:55] LABS: Alanine Aminotransferase* 18 U/L (4-35); Alkaline Phosphatase* 65 U/L (40-150); Anion Gap 10 mEq/L (7-15); Aspartate Amino Transferase* 32 U/L (12-35); Bilirubin Total* 0.5 mg/dL (0.1-1.5); Blood Urea Nitrogen* 13 mg/dL (7-30); Calcium* 9.4 mg/dL (8.4-10.6); Carbon Dioxide* 25 mmol/L (20-32); Creatinine* 0.8 mg/dL (0.5-1.5); Est. Creatinine Clearance* 41.33; Estimated Glomerular Filt Rate 76 ml/min; Glucose* 106 mg/dL (60-115); Total Protein* 7.9 g/dL (6.0-8.3)
[2024-08-17 09:06] LABS: Total Protein Urine 55 mg/dL
[2024-08-17 09:07] LABS: Protein Creatinine Ratio Urine 1.72 (0-0.19)
[2024-08-17 09:09] LABS: Collection Time Urine 24 Hours; Total Protein 24 Hour Urine 1333.8 mg/Day; Total Volume 24 Hour Urine 2425 ml; Urine Creatinine mg/24 Hour 776 mg/Day
[2024-08-19] MEDS: SODIUM CHLORIDE 0.9 % (FLUSH) 10 ML SYRINGE IVF (12:12)
[2024-08-19] MEDS: HEPARIN 500 UNIT/5 ML SYRINGE IVF (12:12)
--- NOTE | 2024-09-07 10:15 | ONC.NURNOTE ---
Pt called noting she has a cold that has been dragging on and would like to delay treatment 1 week to recover well. Labs/Mary Carmen/Vegzelma rescheduled to 09/14 and 09/15.
[2024-09-14 14:23] LABS: Basophils Absolute Auto 0.04 K/uL (0.00-0.30); Basophils Percent Auto 0.6 % (0.0-3.0); Eosinophils Absolute Auto 0.19 K/uL (0.00-0.50); Eosinophils Percent Auto 2.8 % (0.0-7.0); Hematocrit 32.6 % (33.0-51.0); Hemoglobin* 11.3 gm/dL (12.0-16.0); Immature Granulocytes Abs Auto 0.01 K/uL (0.00-0.30); Immature Granulocytes Pct Auto 0.1 %; Lymphocytes Percent Auto 20.9 % (20-44); Mean Corpuscular HGB Conc 35 gm/dL (32-36); Mean Corpuscular Hemoglobin 32 pg (26-34); Mean Corpuscular Volume 93 fL (80-100); Monocytes Percent Auto 11.8 % (0.0-11.0); Neutrophils Absolute Auto 4.27 K/uL (1.7-7.0); Neutrophils Percent Auto 63.8 % (42.0-72.0); Platelet Count* 240 K/uL (140-440); RDW Coefficient of Variation % 12.1 % (11.5-15.5); Red Blood Count 3.49 m/uL (4.00-5.20)
[2024-09-14 14:25] LABS: Slide Review Reflex No
[2024-09-14 14:31] LABS: Total Protein Urine 50 mg/dL
[2024-09-14 14:31] LABS: Albumin* 4.7 g/dL (3.3-5.0); Chloride* 95 mmol/L (96-114); Sodium* 129 mmol/L (135-149)
[2024-09-14 14:32] LABS: Potassium* 4.7 mmol/L (3.6-5.1)
[2024-09-14 14:32] LABS: Creatinine Urine 35.3 mg/dL; Protein Creatinine Ratio Urine 1.42 (0-0.19)
[2024-09-14 14:34] LABS: Alanine Aminotransferase* 21 U/L (4-35); Alkaline Phosphatase* 62 U/L (40-150); Anion Gap 9 mEq/L (7-15); Aspartate Amino Transferase* 34 U/L (12-35); Bilirubin Total* 0.4 mg/dL (0.1-1.5); Blood Urea Nitrogen* 16 mg/dL (7-30); Calcium* 8.9 mg/dL (8.4-10.6); Carbon Dioxide* 25 mmol/L (20-32); Creatinine* 0.9 mg/dL (0.5-1.5); Est. Creatinine Clearance* 41.33; Estimated Glomerular Filt Rate 66 ml/min; Glucose* 106 mg/dL (60-115)
[2024-09-17 00:35] LABS: Cancer Antigen 125 17 U/mL (<=38)
[2024-09-21] MEDS: HEPARIN 500 UNIT/5 ML SYRINGE IVF (11:00)
[2024-09-21] MEDS: SODIUM CHLORIDE 0.9 % (FLUSH) 10 ML SYRINGE IVF (11:00)
[2024-09-21 11:37] LABS: Chloride* 97 mmol/L (96-114); Potassium* 4.7 mmol/L (3.6-5.1); Sodium* 132 mmol/L (135-149)
[2024-09-21 11:40] LABS: Anion Gap 9 mEq/L (7-15); Blood Urea Nitrogen* 13 mg/dL (7-30); Calcium* 9.6 mg/dL (8.4-10.6); Carbon Dioxide* 26 mmol/L (20-32); Creatinine* 0.8 mg/dL (0.5-1.5); Est. Creatinine Clearance* 41.33; Estimated Glomerular Filt Rate 76 ml/min; Glucose* 85 mg/dL (60-115)
--- NOTE | 2024-09-22 10:47 | ONC.NURNOTE ---
RN called patient to update her with Na lab results that was drawn yesterday. Na was up from 129 to 132. RN spoke with Helen Huizar PA-C who wants patient to continue current plan and we will recheck labs Thursday 09/28 prior to patient seeing her. Patient states she will be out of the salt tabs on . RN will as Mary Carmen when she is in clinic next if she wants to send in a refill of the salt tabs. RN will call patient back with an update. Patient verbalized understanding and is agreeable to the plan.
--- NOTE | 2024-09-24 14:58 | ONC.NURNOTE ---
Called patient to update her that Helen Huizar PA-C said her Na was back to baseline and she does not need a refill of the salt tabs. Patient verbalized understanding.
[2024-09-28 13:04] LABS: Basophils Absolute Auto 0.03 K/uL (0.00-0.30); Basophils Percent Auto 0.4 % (0.0-3.0); Eosinophils Absolute Auto 0.15 K/uL (0.00-0.50); Eosinophils Percent Auto 2.2 % (0.0-7.0); Hematocrit 31.7 % (33.0-51.0); Hemoglobin* 10.8 gm/dL (12.0-16.0); Immature Granulocytes Abs Auto 0.01 K/uL (0.00-0.30); Immature Granulocytes Pct Auto 0.1 %; Lymphocytes Percent Auto 16.3 % (20-44); Mean Corpuscular HGB Conc 34 gm/dL (32-36); Mean Corpuscular Hemoglobin 32 pg (26-34); Mean Corpuscular Volume 94 fL (80-100); Monocytes Percent Auto 9.4 % (0.0-11.0); Neutrophils Absolute Auto 4.78 K/uL (1.7-7.0); Neutrophils Percent Auto 71.6 % (42.0-72.0); Platelet Count* 222 K/uL (140-440); RDW Coefficient of Variation % 12.2 % (11.5-15.5); Red Blood Count 3.36 m/uL (4.00-5.20); White Blood Count* 6.69 K/uL (4.50-11.00)
[2024-09-28 13:13] LABS: Slide Review Reflex No
[2024-09-28 13:19] LABS: Albumin* 4.7 g/dL (3.3-5.0); Chloride* 99 mmol/L (96-114); Potassium* 4.5 mmol/L (3.6-5.1); Sodium* 131 mmol/L (135-149)
[2024-09-28 13:21] LABS: Blood Urea Nitrogen* 14 mg/dL (7-30); Creatinine* 0.8 mg/dL (0.5-1.5); Est. Creatinine Clearance* 39.59; Estimated Glomerular Filt Rate 76 ml/min
[2024-09-28 13:22] LABS: Alanine Aminotransferase* 24 U/L (4-35); Alkaline Phosphatase* 57 U/L (40-150); Anion Gap 9 mEq/L (7-15); Aspartate Amino Transferase* 44 U/L (12-35); Bilirubin Total* 0.5 mg/dL (0.1-1.5); Calcium* 8.9 mg/dL (8.4-10.6); Carbon Dioxide* 23 mmol/L (20-32); Glucose* 111 mg/dL (60-115); Total Protein* 7.9 g/dL (6.0-8.3)
[2024-09-28 13:23] LABS: Total Protein Urine 72 mg/dL
[2024-09-28 13:24] LABS: Creatinine Urine 52.4 mg/dL; Protein Creatinine Ratio Urine 1.37 (0-0.19)
[2024-09-28 14:07] VITALS: BP 148/80
[2024-09-28] MEDS: [UNRECOGNIZED DRUG - OTHER] IVPB (14:36)
[2024-09-28] MEDS: BEVACIZUMAB ADCD IVPB (14:36)
[2024-09-28] MEDS: TUBING SECONDARY IVPB (14:36)
[2024-09-28] MEDS: HEPARIN 500 UNIT/5 ML SYRINGE IVF (15:18)
[2024-09-28] MEDS: SODIUM CHLORIDE 0.9 % (FLUSH) 10 ML SYRINGE IVF (15:19)
== END 2024-10-05 23:59 | disposition home or self-care (01) ==
LOC: CCIC 12:45
PROVIDERS: Clinical Nurse Specialist; Internal Medicine Hematology & Oncology; PCP Family Medicine; Referring Provider Family Medicine; Visit Provider Physician Assistant
DX: Z51.12 Encounter for antineoplastic immunotherapy (principal); C56.1 Malignant neoplasm of right ovary; G62.9 Polyneuropathy, unspecified; T45.1X5A Adverse effect of antineoplastic and immunosuppressive drugs, initial encounter; I10 Essential (primary) hypertension; R60.9 Edema, unspecified; E87.1 Hypo-osmolality and hyponatremia; R53.83 Other fatigue
CPT/HCPCS: 36415; 36591; 71260; 74177; 80048; 80053; 82570; 84156; 85025; 86304; 96413; 99202; 99205; 99211; 99213; 99214; 99215; G0463; A9270; J1642; J7030; J7050; Q5129; Q9967

== ENCOUNTER 2024-10-19 10:02 | Outpatient (CLI) | payer MEDICARE, BC, SELFPAY ==
--- NOTE | 2024-10-19 10:15 | CRLHL7_ITS ---
For Patients: As a result of the Century Cures Act, medical imaging exams and procedure reports are released immediately into your electronic medical record. You may view this report before your referring provider. If you have questions, please contact your health care provider. INDICATION: bilateral screening mammogram, asymptomatic 79 y/o female COMPARISON: 09/26/23, 09/12/22, 03/10/21 TECHNIQUE: CC and MLO views were obtained. These mammographic images have been obtained using full-field digital technique. These mammographic images were interpreted with the benefit of computer aided detection and tomosynthesis. BREAST COMPOSITION: There are scattered areas of fibroglandular density. FINDINGS: No suspicious findings. ASSESSMENT: BI-RADS 1 Negative RECOMMENDATION: Annual screening mammogram. A lay language report of this examination will be provided to the patient. Dictated by: Akash Chaves MD @ 10/20/2024 11:14:43 (Electronically Signed)
== END 2024-10-19 10:03 | disposition home or self-care (01) ==
LOC: MAMMO 10:03
PROVIDERS: PCP Family Medicine; Referring Provider Internal Medicine Hematology & Oncology; Visit Provider Obstetrics & Gynecology
DX: Z12.31 Encounter for screening mammogram for malignant neoplasm of breast (principal)
CPT/HCPCS: 77063; 77067

== ENCOUNTER 2024-11-05 12:57 | Outpatient (CLI) | payer MEDICARE, BC, SELFPAY ==
--- NOTE | 2024-11-05 13:30 | CRLHL7_ITS ---
For Patients: As a result of the Century Cures Act, medical imaging exams and procedure reports are released immediately into your electronic medical record. You may view this report before your referring provider. If you have questions, please contact your health care provider. EXAM: FDG PET-CT Skull Base to Thighs CLINICAL INFORMATION: 79-year-old woman with history of malignant neoplasm of right ovary. Restaging. TECHNIQUE: Radiopharmaceutical: 18F-fluorodeoxyglucose (18F-FDG) Dose: 10.8 milliCurie. Blood glucose: 65 mg/dL. Image acquisition: At approximately 60 minutes following IV tracer administration via an access port, positron emission tomography was performed from the skull base through the mid thigh. Non-contrast low-dose helical CT imaging was performed over the same range without breath-hold for attenuation correction of PET images and anatomic correlation; it is neither sufficient, nor should it be substituted for diagnostic purposes. COMPARISON: CT chest, abdomen and pelvis 08/17/2024. FINDINGS: Mediastinal blood pool FDG uptake: SUVMax 2.3 (image 88) Liver background parenchymal FDG uptake: SUVMax 3.0 (image 131) PET Findings: Moderately FDG avid 1.7 x 1.2 cm left thyroid nodule SUVMax 4.8 (image 57). No abnormal FDG avid lymphadenopathy. No abnormal FDG uptake in the visualized skeleton. *Faintly FDG avid postoperative changes in the subcutaneous tissues of the left paramedian abdominal wall, likely reactive. *Faint FDG uptake along the left paramedian ventral peritoneum without definite CT correlate is favored to be reactive postoperative uptake. SUVMax 2.3 (Image 198) Tracer uptake elsewhere is physiologic. Non-PET findings: Right internal jugular port catheter with the tip terminating in the right innominate. Coronary artery calcifications. Atherosclerotic calcifications of the thoracic and abdominal aorta. Colonic diverticulosis. Hysterectomy. Multilevel degenerative changes in the spine. IMPRESSION: 1. Faint FDG uptake along the left paramedian ventral peritoneum without definite CT correlate is favored to represent reactive postoperative uptake. 2. Moderately FDG avid 1.7 cm left thyroid nodule raises concern for a primary thyroid neoplasm. Correlate with thyroid ultrasound and tissue sampling. 3. No other sites of metabolically active malignancy. 4. Right internal jugular port catheter with the tip terminating in the right innominate. Consider advancement. Dictated by Los Cazares MD @ 11/06/2024 12:50:41 PM (Electronically Signed)
== END 2024-11-05 12:58 | disposition home or self-care (01) ==
LOC: RAD 12:58
PROVIDERS: PCP Family Medicine; Visit Provider Physician Assistant
DX: C56.1 Malignant neoplasm of right ovary (principal)
CPT/HCPCS: 78815; 99211; A9552; J1642

== ENCOUNTER 2024-11-13 10:35 | Outpatient (CLI) | payer MEDICARE, BC, SELFPAY ==
--- NOTE | 2024-11-13 10:45 | CRLHL7_ITS ---
For Patients: As a result of the Century Cures Act, medical imaging exams and procedure reports are released immediately into your electronic medical record. You may view this report before your referring provider. If you have questions, please contact your health care provider. INDICATION: f/u nodule on PET scan COMPARISON: CT PET 11/05/2024 TECHNIQUE: Real scale and color Doppler images were acquired of the thyroid gland. FINDINGS: Hypoechoic solid nodule left thyroid lobe measures 4 x 4 x 5 millimeters, TR 4. No biopsy indicated. Isthmus measures 3.8 millimeters. Incidental calcification right thyroid lobe measures 6 millimeters. The right lobe measures 4.3 x 1.6 x 1.7 cm and the left lobe measures 5.1 x 1.4 x 1.9 cm in size. The color Doppler images demonstrate normal vascularity. There is no evidence of cervical lymphadenopathy or parathyroid mass. IMPRESSION: No suspicious nodules. Dictated by Akash Chaves MD @ 11/13/2024 1:06:34 PM (Electronically Signed)
== END 2024-11-13 10:36 | disposition home or self-care (01) ==
LOC: US 10:36
PROVIDERS: PCP Family Medicine; Visit Provider Internal Medicine Hematology & Oncology
DX: E04.1 Nontoxic single thyroid nodule (principal)
CPT/HCPCS: 76536

== ENCOUNTER 2024-12-25 08:32 | Outpatient (CLI) | payer MEDICARE, BC, SELFPAY | END 2024-12-25 08:33 | disposition home or self-care (01) | LOC: NFLDREF 08:32 | PROVIDERS: PCP Family Medicine; Visit Provider Obstetrics & Gynecology | DX: C56.9 Malignant neoplasm of unspecified ovary (principal) | CPT/HCPCS: 86304 ==

== ENCOUNTER 2025-02-11 13:20 | Outpatient (CLI) | payer MEDICARE, BC, SELFPAY ==
--- NOTE | 2025-02-11 14:00 | CRLHL7_ITS ---
For Patients: As a result of the 21st Century Cures Act, medical imaging exams and procedure reports are released immediately into your electronic medical record. You may view this report before your referring provider. If you have questions, please contact your health care provider. EXAM: FDG PET-CT Skull Base to Thighs CLINICAL INFORMATION: 79-year-old woman with history of malignant neoplasm of right ovary. Restaging. TECHNIQUE: Radiopharmaceutical: 18F-fluorodeoxyglucose (18F-FDG) Dose: 12.88 MilliCurie. Blood glucose: 94 mg/dL. Image acquisition: At approximately 60 minutes following IV tracer administration via an access port, positron emission tomography was performed from the skull base through the mid thigh. Non-contrast low-dose helical CT imaging was performed over the same range without breath-hold for attenuation correction of PET images and anatomic correlation; it is neither sufficient, nor should it be substituted for diagnostic purposes. COMPARISON: 11/05/2024 PET-CT. Thyroid ultrasound 11/13/2024. FINDINGS: Mediastinal blood pool FDG uptake: SUVMax 2.4 (301:102) Liver background parenchymal FDG uptake: SUVMax 3.0 (301:142) PET Findings: Decreased avidity of a mildly FDG avid 1.7 x 1.2 cm left thyroid nodule SUVMax 3.0 (301:69, 202:70) previously 1.7 x 1.2 cm SUVMax 4.8 . *Similar faint FDG uptake along the left paramedian ventral peritoneum without definite CT correlate SUVMax 2.1 (image 211), previously SUVMax 2.3. *New moderately FDG avid 0.9 x 0.8 cm retroperitoneal aortocaval lymph node SUVMax 4.0 (image 170). No abnormal FDG uptake in the visualized skeleton. Tracer uptake elsewhere is physiologic. Non-PET findings: Right internal jugular port catheter with the tip terminating in the right brachiocephalic vein. Coronary artery calcifications. Atherosclerotic calcifications of the thoracic and abdominal aorta. Gallbladder sludge. Colonic diverticulosis. Hysterectomy. Multilevel degenerative changes in the spine. IMPRESSION: 1. Similar faint FDG uptake along the left paramedian ventral peritoneum without definite CT correlate, favored to represent reactive postoperative uptake. 2. New moderately FDG avid 0.9 x 0.8 cm retroperitoneal aortocaval lymph node raises concern for a site of new anna metastatic disease. 3. Right internal jugular port catheter with the tip terminating in the right brachiocephalic vein, in similar configuration as 11/05/2024. Dictated by Los Cazares MD @ 02/13/2025 10:33:28 AM (Electronically Signed)
== END 2025-02-11 13:21 | disposition home or self-care (01) ==
LOC: RAD 13:21
PROVIDERS: PCP Family Medicine; Visit Provider Internal Medicine Hematology & Oncology
DX: C56.1 Malignant neoplasm of right ovary (principal); R59.0 Localized enlarged lymph nodes
CPT/HCPCS: 78815; A9552

== ENCOUNTER 2025-03-08 12:45 | Outpatient (RCR) | payer MEDICARE, BC, SELFPAY ==
--- NOTE | 2024-10-06 14:19 | ONC.NURNOTE ---
Upcoming Appts -- Oncology Mon 10/19 Infusion and Screening Mammogram Thurs 11/05 [address] at 1330 Mon 11/09 Labs/F/u appt/Infusion *Pet CT prep instructions hard copy in pt's chart to be given to pt at 10/19 appt. Confirmed appts with pt via phone. She also notes she is scheduled for a Pelvic Exam 12/[address] Bernard Hilton.
[2024-10-19 10:55] LABS: Hematocrit* 33.0 % (33.0-51.0); Hemoglobin* 11.2 gm/dL (12.0-16.0); Immature Granulocytes Abs Auto 0.01 K/uL (0.00-0.30); Immature Granulocytes Pct Auto 0.1 %; Mean Corpuscular HGB Conc 34 gm/dL (32-36); Mean Corpuscular Hemoglobin 32 pg (26-34); Mean Corpuscular Volume 94 fL (80-100); RDW Coefficient of Variation % 12.1 % (11.5-15.5); Red Blood Count* 3.52 m/uL (4.00-5.20); White Blood Count* 6.76 K/uL (4.50-11.00)
[2024-10-19 11:00] LABS: Lymphocytes Absolute Auto 1.10 K/uL (0.90-2.90); Slide Review Reflex No
[2024-10-19 11:09] LABS: Albumin* 4.7 g/dL (3.3-5.0); Chloride* 95 mmol/L (96-114); Potassium* 4.8 mmol/L (3.6-5.1); Sodium* 129 mmol/L (135-149)
[2024-10-19 11:11] LABS: Blood Urea Nitrogen* 14 mg/dL (7-30); Creatinine* 0.8 mg/dL (0.5-1.5); Estimated Glomerular Filt Rate 76 ml/min
[2024-10-19 11:12] LABS: Alanine Aminotransferase* 25 U/L (4-35); Alkaline Phosphatase* 67 U/L (40-150); Anion Gap 10 mEq/L (7-15); Aspartate Amino Transferase* 45 U/L (12-35); Bilirubin Total* 0.7 mg/dL (0.1-1.5); Calcium* 9.5 mg/dL (8.4-10.6); Carbon Dioxide* 24 mmol/L (20-32); Glucose* 97 mg/dL (60-115); Total Protein* 8.3 g/dL (6.0-8.3)
[2024-10-19 11:29] VITALS: BP 158/72; PULSE 75; RESP 16; TEMP 36.4; O2SAT 98
[2024-10-19] MEDS: BEVACIZUMAB ADCD IVPB (12:06)
[2024-10-19] MEDS: TUBING SECONDARY IVPB (12:06)
[2024-10-19] MEDS: [UNRECOGNIZED DRUG - OTHER] IVPB (12:06)
[2024-11-05] MEDS: SODIUM CHLORIDE 0.9 % (FLUSH) 10 ML SYRINGE IVF (14:49)
[2024-11-05] MEDS: HEPARIN 500 UNIT/5 ML SYRINGE IVF (14:49)
[2024-11-09 09:42] LABS: Hematocrit* 33.7 % (33.0-51.0); Hemoglobin* 11.6 gm/dL (12.0-16.0); Immature Granulocytes Abs Auto 0.00 K/uL (0.00-0.30); Immature Granulocytes Pct Auto 0.0 %; Lymphocytes Absolute Auto 1.06 K/uL (0.90-2.90); Mean Corpuscular HGB Conc 34 gm/dL (32-36); Mean Corpuscular Hemoglobin 32 pg (26-34); Mean Corpuscular Volume 93 fL (80-100); RDW Coefficient of Variation % 12.1 % (11.5-15.5); Red Blood Count* 3.63 m/uL (4.00-5.20); White Blood Count* 5.08 K/uL (4.50-11.00)
[2024-11-09 09:48] LABS: Slide Review Reflex No
[2024-11-09 09:56] LABS: Albumin* 4.7 g/dL (3.3-5.0); Chloride* 97 mmol/L (96-114); Potassium* 4.8 mmol/L (3.6-5.1); Sodium* 130 mmol/L (135-149)
[2024-11-09 09:59] LABS: Alanine Aminotransferase* 30 U/L (4-35); Alkaline Phosphatase* 70 U/L (40-150); Anion Gap 9 mEq/L (7-15); Aspartate Amino Transferase* 56 U/L (12-35); Bilirubin Total* 0.7 mg/dL (0.1-1.5); Blood Urea Nitrogen* 14 mg/dL (7-30); Carbon Dioxide* 24 mmol/L (20-32); Creatinine* 0.9 mg/dL (0.5-1.5); Estimated Glomerular Filt Rate 66 ml/min; Total Protein* 8.3 g/dL (6.0-8.3)
[2024-11-09 10:00] LABS: Calcium* 9.6 mg/dL (8.4-10.6); Glucose* 103 mg/dL (60-115)
[2024-11-09 10:43] LABS: Protein Creatinine Ratio Urine 2.17 (0-0.19)
[2024-11-10 13:55] LABS: Protein Creatinine Ratio Urine 2.20 (0-0.19)
[2024-11-10 14:01] LABS: Total Volume 24 Hour Urine 2400 ml; Urine Creatinine mg/24 Hour 698 mg/Day
[2024-11-20 09:24] VITALS: BP 188/78; PULSE 83; RESP 18; TEMP 36.5; O2SAT 99
[2024-11-20 09:24] LABS: Hematocrit* 32.8 % (33.0-51.0); Hemoglobin* 11.3 gm/dL (12.0-16.0); Immature Granulocytes Abs Auto 0.00 K/uL (0.00-0.30); Immature Granulocytes Pct Auto 0.0 %; Lymphocytes Absolute Auto 1.19 K/uL (0.90-2.90); Mean Corpuscular HGB Conc 35 gm/dL (32-36); Mean Corpuscular Hemoglobin 32 pg (26-34); Mean Corpuscular Volume 94 fL (80-100); RDW Coefficient of Variation % 12.2 % (11.5-15.5); Red Blood Count* 3.49 m/uL (4.00-5.20); White Blood Count* 5.70 K/uL (4.50-11.00)
[2024-11-20 09:28] LABS: Slide Review Reflex No
[2024-11-20 09:35] LABS: Protein Creatinine Ratio Urine 2.62 (0-0.19)
[2024-11-20 09:42] LABS: Albumin* 4.5 g/dL (3.3-5.0); Chloride* 99 mmol/L (96-114); Potassium* 4.5 mmol/L (3.6-5.1); Sodium* 132 mmol/L (135-149)
[2024-11-20 09:45] LABS: Alanine Aminotransferase* 26 U/L (4-35); Alkaline Phosphatase* 66 U/L (40-150); Anion Gap 7 mEq/L (7-15); Aspartate Amino Transferase* 50 U/L (12-35); Bilirubin Total* 0.6 mg/dL (0.1-1.5); Blood Urea Nitrogen* 14 mg/dL (7-30); Calcium* 9.6 mg/dL (8.4-10.6); Carbon Dioxide* 26 mmol/L (20-32); Cholesterol* 222 mg/dL (90-199); Creatinine* 0.8 mg/dL (0.5-1.5); Est. Creatinine Clearance* 40.68; Estimated Glomerular Filt Rate 76 ml/min; Glucose* 88 mg/dL (60-115); HDL Cholesterol* 51 mg/dL (>=50); Total Protein* 8.0 g/dL (6.0-8.3); Triglycerides* 184 mg/dL (40-149)
[2024-11-20 09:47] VITALS: BP 175/82; PULSE 72; RESP 17; O2SAT 98
[2024-11-20] MEDS: HEPARIN 500 UNIT/5 ML SYRINGE IVF (10:12)
[2024-11-20] MEDS: SODIUM CHLORIDE 0.9 % (FLUSH) 10 ML SYRINGE IVF (10:12)
--- NOTE | 2024-11-20 10:16 | ONC.NURNOTE ---
Addendum entered by Anais Walter RN 11/24/24 16:32: Patient called and let know that it is OK to proceed with dental work and cataracts while being treated with Avastin but patient states the providers don't want to do anything until she's off treatment. Also let her know that at this time she will need to take a 2 week break from Avastin and then come back in for another urine test to see if improved and if below 2.0 Avastin can be restarted (See patient's chart for order) Addendum entered by Marli Al RN 11/20/24 10:22: Also of note, pt's blood pressure was elevated today. See VS in the Worklist. Original Note: Pt present at [facility] today for bevacizumab infusion. Noted previous urine creat/prot ratio level and subsequent 24 hour urine results. It was determined that the urine creat/prot ratio should be done again today. Results continue to be elevated and even more so than the previous. Reviewed case with Tatianna Brooke APRN and orders were obtained to hold today's dose and discuss further with MD next week. Pt updated and understands. She did share that she has some dental work and cataracts that need removal so she wonders if taking a break from bevacizumab now would be a good time to get those things done. Or should she wait until treatment completed. Will f/u with pt next week after MD review.
[2024-11-20 10:34] LABS: Vitamin B12* 471 pg/mL (243-894)
[2024-11-20 11:03] LABS: TSH With Reflex to FT4* 2.230 uIU/mL (0.270-4.200)
[2024-12-09 09:01] VITALS: BP 169/67; PULSE 85; RESP 16; TEMP 36.4; O2SAT 99
[2024-12-09 09:43] LABS: Hematocrit* 33.8 % (33.0-51.0); Hemoglobin* 11.6 gm/dL (12.0-16.0); Immature Granulocytes Abs Auto 0.04 K/uL (0.00-0.30); Immature Granulocytes Pct Auto 0.8 %; Mean Corpuscular HGB Conc 34 gm/dL (32-36); Mean Corpuscular Hemoglobin 32 pg (26-34); Mean Corpuscular Volume 93 fL (80-100); RDW Coefficient of Variation % 12.1 % (11.5-15.5); Red Blood Count* 3.64 m/uL (4.00-5.20); White Blood Count* 5.14 K/uL (4.50-11.00)
[2024-12-09 09:44] LABS: Lymphocytes Absolute Auto 1.00 K/uL (0.90-2.90); Slide Review Reflex Yes
[2024-12-09 09:56] LABS: Albumin* 4.6 g/dL (3.3-5.0); Chloride* 96 mmol/L (96-114); Potassium* 4.4 mmol/L (3.6-5.1); Sodium* 128 mmol/L (135-149)
[2024-12-09 09:59] LABS: Alanine Aminotransferase* 28 U/L (4-35); Alkaline Phosphatase* 63 U/L (40-150); Anion Gap 7 mEq/L (7-15); Aspartate Amino Transferase* 50 U/L (12-35); Bilirubin Total* 0.7 mg/dL (0.1-1.5); Blood Urea Nitrogen* 14 mg/dL (7-30); Calcium* 9.5 mg/dL (8.4-10.6); Carbon Dioxide* 25 mmol/L (20-32); Creatinine* 0.8 mg/dL (0.5-1.5); Est. Creatinine Clearance* 40.68; Estimated Glomerular Filt Rate 76 ml/min; Glucose* 85 mg/dL (60-115); Total Protein* 8.1 g/dL (6.0-8.3)
[2024-12-09 11:37] LABS: Protein Creatinine Ratio Urine 2.14 (0-0.19)
--- NOTE | 2024-12-09 13:57 | ONC.NURNOTE ---
Patient in clinic today for urine check and Bevacizumab. Bp 154/75, urine protein resulted at 2.14. RN spoke with Dr. Mohan who wants patient to complete another 24 hour urine and then based on that result ok to resume Bevacizumab. RN updated patient who is concerned about not having her treatment for almost a month and is wondering if there is another drug she could do that wouldn't affect her body or her labs as much. RN advised that would need to be a discussed with her oncologist. Mehnaz ok to complete the 24 hour urine. She is going to complete it next week with hopes of doing treatment 12/21- 12/25 as she has plans to be out of town the week of the . 24 hour urine jug sent home with patient.
[2024-12-09 23:01] LABS: Slide Review Acceptable Review (Acceptable)
[2024-12-22 10:21] LABS: Protein Creatinine Ratio Urine 2.04 (0-0.19)
[2024-12-22 16:26] LABS: Total Volume 24 Hour Urine 2450 ml; Urine Creatinine mg/24 Hour 649 mg/Day
--- NOTE | 2025-02-09 09:43 | ONC.NURNOTE ---
Pt called to report that she is at the tail end of a cough which may be a URI vs smoky air. She is using NyQuill and DayQuill with relief. She wonders if it's ok to keep her PET scan scheduled for . RN advised pt to keep the appt scheduled as her symptoms are resolving. Pt has a f/u with on 02/17.
[2025-02-11 15:49] LABS: Hematocrit* 32.3 % (33.0-51.0); Hemoglobin* 11.2 gm/dL (12.0-16.0); Immature Granulocytes Abs Auto 0.01 K/uL (0.00-0.30); Immature Granulocytes Pct Auto 0.2 %; Mean Corpuscular HGB Conc 35 gm/dL (32-36); Mean Corpuscular Hemoglobin 32 pg (26-34); Mean Corpuscular Volume 91 fL (80-100); RDW Coefficient of Variation % 12.2 % (11.5-15.5); Red Blood Count* 3.55 m/uL (4.00-5.20); White Blood Count* 6.36 K/uL (4.50-11.00)
[2025-02-11 15:50] LABS: Lymphocytes Absolute Auto 1.10 K/uL (0.90-2.90)
[2025-02-11 15:51] LABS: Slide Review Reflex No
[2025-02-11 16:03] LABS: Chloride* 94 mmol/L (96-114)
[2025-02-11 16:04] LABS: Albumin* 4.7 g/dL (3.3-5.0); Potassium* 4.6 mmol/L (3.6-5.1); Sodium* 127 mmol/L (135-149)
[2025-02-11 16:06] LABS: Alanine Aminotransferase* 24 U/L (4-35); Anion Gap 9 mEq/L (7-15); Aspartate Amino Transferase* 47 U/L (12-35); Blood Urea Nitrogen* 13 mg/dL (7-30); Carbon Dioxide* 24 mmol/L (20-32); Creatinine* 0.9 mg/dL (0.5-1.5); Est. Creatinine Clearance* 40.68; Estimated Glomerular Filt Rate 66 ml/min
[2025-02-11 16:07] LABS: Alkaline Phosphatase* 66 U/L (40-150); Bilirubin Total* 0.7 mg/dL (0.1-1.5); Calcium* 9.7 mg/dL (8.4-10.6); Glucose* 85 mg/dL (60-115); Total Protein* 8.4 g/dL (6.0-8.3)
--- NOTE | 2025-02-18 14:58 | ONC.NURNOTE ---
Received call from Faisal at [facility] in regards for lymph node biopsy requested by Dr. belcher. He stated the size was adequate per radiologist Dr. Bingham buy no window to get to it. Patient and Dr. Belcher updated
[2025-03-08] MEDS: SODIUM CHLORIDE 0.9 % (FLUSH) 10 ML SYRINGE IVF (12:18)
--- NOTE | 2025-03-08 13:46 | ONC.NURNOTE ---
Pt present at [facility] today for port access for radiation simulation. Pt is due for MD follow up ~4 weeks after completing radiation therapy. LM on pt's primary number asking her to call [facility] to schedule this follow-up after she knows her final radiation date.
== END 2025-04-17 23:59 | disposition home or self-care (01) ==
LOC: CCIC 12:45
PROVIDERS: Clinical Nurse Specialist; Physician Assistant; PCP Family Medicine; Referring Provider Family Medicine; Visit Provider Internal Medicine Hematology & Oncology
DX: C56.1 Malignant neoplasm of right ovary (principal)
CPT/HCPCS: 36415; 36591; 78815; 80053; 80061; 82570; 82607; 84156; 84443; 85025; 86304; 96413; 99001; 99211; 99213; 99214; 99215; G0463; A9552; J1642; Q5129

== ENCOUNTER 2025-06-08 07:41 | Outpatient (CLI) | payer MEDICARE, BC, SELFPAY ==
--- NOTE | 2025-06-08 08:15 | CRLHL7_ITS ---
For Patients: As a result of the 21st Century Cures Act, medical imaging exams and procedure reports are released immediately into your electronic medical record. You may view this report before your referring provider. If you have questions, please contact your health care provider. EXAM: FDG PET-CT Skull Base to Thighs CLINICAL INFORMATION: 79-year-old woman with history of ovarian cancer. Restaging. TECHNIQUE: Radiopharmaceutical: 18F-fluorodeoxyglucose (18F-FDG) Dose: 15.93 MilliCurie. Blood glucose: 93 mg/dL. Image acquisition: At approximately 60 minutes following IV tracer administration via an access port, positron emission tomography was performed from the skull base through the mid thigh. Non-contrast low-dose helical CT imaging was performed over the same range without breath-hold for attenuation correction of PET images and anatomic correlation; it is neither sufficient, nor should it be substituted for diagnostic purposes. COMPARISON: FDG PET-CT 02/11/2025. 11/05/2024 FDG PET-CT. FINDINGS: There is diffusely increased skeletal muscle FDG uptake which is consistent with either an inadequate fasting period prior to the initiation of this study, insulin effect or less likely very recent strenuous exercise. This alters the biodistribution of radiotracer and decreases the sensitivity of the study. Mediastinal blood pool FDG uptake: SUVMax 1.6 (Image 87); previously SUVMax 2.4 Liver background parenchymal FDG uptake: SUVMax 2.1 (Image 134) SUVMax 3.0 PET Findings: Similar mildly FDG avid 1.5 x 1.2 cm left thyroid nodule SUVmax 2.7, (image 58) previously 1.7 x 1.2 cm SUVMax 3.0. No definite evidence of the previously visualized faint FDG uptake along the left paramedian ventral peritoneum. Decreased size and resolved FDG uptake in a 0.5 x 0.3 cm retroperitoneal aortocaval lymph node (image 158), previously 0.9 x 0.8 cm SUVMax 4.0. New FDG avid right supraclavicular and mediastinal lymphadenopathy, subcentimeter in short axis, for example: * 1.1 x 0.9 cm right supraclavicular node SUVmax 6.3, (image 59). * 1.0 x 0.8 cm left upper paratracheal node SUVmax 3.3, (image 65). New mildly FDG avid 1.2 x 0.9 cm periportal/portacaval lymph node SUVmax 2.4, (image 146). No abnormal FDG uptake in the visualized skeleton. Tracer uptake elsewhere is physiologic. Non-PET findings: Right internal jugular port catheter with the tip terminating in the right brachiocephalic vein. Coronary artery calcifications. Atherosclerotic calcifications of the thoracic and abdominal aorta. Gallbladder sludge. Colonic diverticulosis. Hysterectomy. Multilevel degenerative changes in the spine. IMPRESSION: There is diffusely increased skeletal muscle FDG uptake which is consistent with either an inadequate fasting period prior to the initiation of this study, insulin effect or less likely very recent strenuous exercise. This alters the biodistribution of radiotracer and decreases the sensitivity of the study. Since 02/11/2025: 1. New moderately FDG avid right supraclavicular, mediastinal, and portacaval lymphadenopathy, subcentimeter in short axis, is nonspecific. These may be inflammatory or metastatic. 2. Decreased size and resolved FDG uptake in a 0.5 x 0.3 cm retroperitoneal aortocaval lymph node, which was previously moderately FDG avid. This may represent posttreatment change or resolving inflammatory uptake. Correlate with interval clinical treatment history since 02/11/2025. 3. No definite evidence of the previously visualized faint FDG uptake along the left paramedian ventral peritoneum, noting study limitations. This may be artifactually decreased. 4. Right internal jugular port catheter with the tip terminating in the right brachiocephalic vein, in similar configuration as 11/05/2024. Suggest review of preparation procedures for FDG PET-CT with mammography technologist at the imaging center several days prior to the next FDG PET-CT. Dictated by Los Cazares MD @ 06/08/2025 9:55:11 PM (Electronically Signed)
== END 2025-06-08 07:42 | disposition home or self-care (01) ==
LOC: RAD 07:43
PROVIDERS: PCP Family Medicine; Visit Provider Internal Medicine Hematology & Oncology
DX: C56.1 Malignant neoplasm of right ovary (principal)
CPT/HCPCS: 78815; A9552